=== PATIENT | female | born 1940 ===

== ENCOUNTER 2021-02-27 09:30 | Day surgery (SDC) | payer OTHER ==
[~2021-02-27 09:30] MED LIST: SYNTHROID75 MCG PO
[2021-02-27] MEDS ORDERED: KEFLEX750 MG PO (14:55)
[2021-02-27] MEDS ORDERED: ULTRACET PO (14:55)
== END 2021-02-27 17:40 | disposition home or self-care (01) ==
LOC: CIR.AMB 09:30
PROVIDERS: ATTEND Obstetrics & Gynecology Gynecology
DX: N32.81 Overactive bladder (principal); Z20.822 Contact with and (suspected) exposure to COVID-19
CPT/HCPCS: 64590; 64581; 95972; C1778; L8679